=== PATIENT | male | born 1985 | race African-American/Black ===

== ENCOUNTER 2020-04-11 10:15 | Emergency (ER) | payer OTHER ==
[~2020-04-11] VITALS: Ht 185.4 cm; Wt 76.2 kg
[2020-04-11 10:34] VITALS: BP 113/57
[2020-04-11] MEDS ORDERED: oxyCONTIN 10mg tab ORAL ONE (11:00)
[2020-04-11] MEDS ORDERED: OXYCONTIN10 MG ORAL (11:07)
[2020-04-11 11:11] VITALS: BP 113/57
--- NOTE | 2020-04-20 14:47 | Emergency Room Report ---
History of Present Illness General Chief Complaint: Multiple Trauma/Fall Source: Patient Present Illness HPI Patient is a 35-year-old male presents for increased pain. Patient had recent trauma in [place]. Had been hospitalized and had evaluation and surgery with repair of shoulder. Had increased pain to his pelvis. Patient had previously been prescribed oxycodone. He had increased pain with ambulation. Previous history of pubic ramus fracture. Denies any new changes to his extremities. Patient had been receiving IV morphine during hospitalization. He reports having more pain now that he is only receiving oxycodone. 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 COVID-19 Screening: Negative COVID-19 COVID-19 Testing Source: [facility] in [place] Patient History Past Medical History: see triage record Reviewed Nursing Documentation: PMH: Agreed; PSxH: Agreed Review of Systems All Other Systems: negative except mentioned in HPI Physical Exam Sp02 EP Interpretation: reviewed, normal General Appearance: normal inspection, well appearing, no apparent distress, alert, GCS 15 Head: atraumatic ENT: normal ENT inspection, hearing grossly normal, normal voice Neck: normal inspection, full range of motion, supple, no bony tend Respiratory: normal inspection, lungs clear, normal breath sounds, no respiratory distress, no retraction, no wheezing Cardiovascular #1: regular rate, rhythm, no edema Gastrointestinal: normal inspection, normal bowel sounds, non tender, soft, no guarding, no hernia Genitourinary: no CVA tenderness Musculoskeletal: normal inspection, back normal, normal range of motion Neurologic: alert, motor strength/tone normal, stitcher around III-XII nml as tested, oriented x3, responsive, speech normal, normal inspection Psychiatric: normal inspection, judgement/insight normal, mood/affect normal Medical Decision Making Diagnostic Impression: Primary Impression: Encounter for post-traumatic wound check ER Course Patient presented for postoperative pain. Differential diagnosis included was not limited to fracture pain, compartment syndrome, Wound infection among others.patient has a benign exam and does not appear to require any imaging or laboratory testing at this time. Patient does not appear to have any evidence of acute infection. He was given prescription for pain medications and given pain medications in the emergency department. Appears to be stable for follow- up with his surgeon. Patient was advised to keep extremities elevated to continue to ice the areas of discomfort. He was advised to return if worse. He was advised to follow-up with the surgeon if he needed further pain medications. This medical record is generated with [employer] retreader software. There may be some retreader discrepancies related to use of this software. Status: improved Disposition: HOME, SELF-CARE Condition: Stable Scripts Oxycodone Hcl Er* (OXYCONTIN*) 10 Mg Tab.er.12h 10 MG ORAL EVERY 12 HOURS, #10 TAB 0 Refills Prov: Aleksandr Marquez MD 04/11/20 Referrals: [facility]ERR[facility] (PCP) Patient Instructions: Wound Check, Pain Medicine Instructions, [id number] Additional Instructions: Follow up with your surgeon if you need any other pain medications. We will NOT refill this medication. Return if any fever, vomiting, weakness or other concerns. Aleksandr Marquez MD Apr 20, 2020 14:47
== END 2020-04-11 11:13 | disposition home or self-care (01) ==
LOC: EMR 11:10
DX: Z48.89 Encounter for other specified surgical aftercare (principal); Z98.890 Other specified postprocedural states
CPT/HCPCS: 99282